=== PATIENT | female | born 1965 | race African-American/Black ===

== ENCOUNTER 2018-09-01 09:50 | Day surgery (SDC) | payer BC ==
[~2018-09-01] VITALS: Ht 172.7 cm; Wt 151.5 kg
[~2018-09-01 09:50] MED LIST: ALEVE220 M1 PO; ALL DAY ALLG10 MG PO; AMLODIPINE5 MG PO; CELEXA40 M1 PO; METFORMIN500 MG PO; METO50TA52 PO; OMEPRAZOLE20 M1 PO; SUCRALFATE1 GM PO; TRAZODONE50 MG PO; TYLENOL PM PO; VENTOLIN HFA IN
[2018-09-01 12:05] VITALS: BP 105/63
== END 2018-09-01 12:20 | disposition home or self-care (01) | DRG 951 ==
LOC: ENDO 09:50 → ORM 12:25 → ENDO 12:35 → ORM 13:00 → ENDO 14:10 → ORM 14:45 → ENDO 16:35 → ORM 17:05
PROVIDERS: ATTEND Internal Medicine Gastroenterology
PROC: 0DBN8ZX Excision of Sigmoid Colon, Via Natural or Artificial Opening Endoscopic, Diagnostic (ICD-10-PCS; principal; 2018-09-01)
DX: Z12.11 Encounter for screening for malignant neoplasm of colon (principal); K63.5 Polyp of colon; K64.4 Residual hemorrhoidal skin tags; K64.8 Other hemorrhoids; K21.9 Gastro-esophageal reflux disease without esophagitis; K76.0 Fatty (change of) liver, not elsewhere classified; E66.9 Obesity, unspecified; Z79.899 Other long term (current) drug therapy